=== PATIENT | female | born 1940 | race Caucasian/White ===

== ENCOUNTER 2018-09-15 15:42 | Inpatient (IN) | payer BC ==
[~2018-09-15] VITALS: Ht 152.4 cm; Wt 72.6 kg
[2018-09-15 16:10] VITALS: Ht 152.4 cm; Wt 72.6 kg
[2018-09-15 17:36] LABS: BASOPHIL % 0.5 % (0-2); PLATELET COUNT 322 x10^3mcL (130-400)
[2018-09-15 17:37] LABS: RED CELL DISTRIBUTION WIDTH 16.3 % (11.5-14.5)
[2018-09-15 17:42] LABS: CALCIUM 9.1 mg/dL (8.5-10.1); CARBON DIOXIDE 22.8 mmol/L (21-32); CHLORIDE SERUM 104 mmol/L (98-107); CREATININE SERUM 1.2 mg/dL (0.6-1.0); GLUCOSE SERUM 132 mg/dL (74-106); SODIUM SERUM 142 mmol/L (136-145)
[2018-09-15 17:49] LABS: POTASSIUM SERUM 2.9 mmol/L (3.5-5.1)
[2018-09-15] MEDS ORDERED: DETROL LA2 MG PO (18:22)
[2018-09-15] MEDS ORDERED: PANTOPRAZOLE SO40 M1 PO (18:22)
[2018-09-15] MEDS ORDERED: FERROUS SULFAT325 M2 PO (18:22)
[2018-09-15] MEDS ORDERED: NOR10 PO (18:23)
[2018-09-15] MEDS ORDERED: LOSARTAN POTASS50 M1 PO (18:23)
[2018-09-15] MEDS ORDERED: TRAZODONE50 M1 PO (18:23)
[2018-09-15] MEDS ORDERED: ASPIR 8181 MG PO (18:23)
[2018-09-15] MEDS ORDERED: ATORVASTATIN CA40 M1 PO (18:23)
[2018-09-15] MEDS ORDERED: RANEXA500 M2 PO (18:24)
[2018-09-15] MEDS ORDERED: ELIQUIS5 MG PO (18:24)
[2018-09-15] MEDS ORDERED: BRILINTA60 MG PO (18:25)
[2018-09-15 19:54] LABS: MAGNESIUM 2.1 mg/dL (1.8-2.4); PHOSPHOROUS 3.2 mg/dL (2.5-4.9)
[2018-09-15 19:55] LABS: CHOLESTEROL/HDL RATIO 2.5
[2018-09-15 20:52] VITALS: BP 128/51
[2018-09-16 00:10] LABS: CALCIUM 8.4 mg/dL (8.5-10.1); CARBON DIOXIDE 26.1 mmol/L (21-32); CHLORIDE SERUM 106 mmol/L (98-107); GLUCOSE SERUM 103 mg/dL (74-106); POTASSIUM SERUM 3.4 mmol/L (3.5-5.1); SODIUM SERUM 139 mmol/L (136-145)
[2018-09-16 05:35] VITALS: BP 110/51
[2018-09-16 07:35] LABS: BASOPHIL % 0.6 % (0-2); PLATELET COUNT 301 x10^3mcL (130-400)
[2018-09-16 07:56] LABS: CALCIUM 8.2 mg/dL (8.5-10.1); CARBON DIOXIDE 24.5 mmol/L (21-32); CHLORIDE SERUM 108 mmol/L (98-107); CREATININE SERUM 0.9 mg/dL (0.6-1.0); GLUCOSE SERUM 103 mg/dL (74-106); MAGNESIUM 2.2 mg/dL (1.8-2.4); PHOSPHOROUS 2.2 mg/dL (2.5-4.9); POTASSIUM SERUM 4.2 mmol/L (3.5-5.1); SODIUM SERUM 141 mmol/L (136-145)
[2018-09-16 08:18] LABS: RED CELL DISTRIBUTION WIDTH 16.1 % (11.5-14.5)
[2018-09-16 08:30] VITALS: BP 105/51
[2018-09-16 10:21] VITALS: BP 115/51
[2018-09-16 13:30] VITALS: BP 136/64
[2018-09-16 16:50] LABS: microscopic required? YES; urine erythrocyte NEGATIVE (NEGATIVE)
[2018-09-16 17:30] VITALS: BP 134/64
[2018-09-16 21:04] VITALS: BP 119/48
[2018-09-17 05:32] VITALS: BP 132/60
[2018-09-17 06:45] LABS: BASOPHIL % 0.8 % (0-2); PLATELET COUNT 313 x10^3mcL (130-400)
[2018-09-17 07:22] LABS: RED CELL DISTRIBUTION WIDTH 16.6 % (11.5-14.5)
[2018-09-17 07:23] LABS: CALCIUM 8.7 mg/dL (8.5-10.1); CARBON DIOXIDE 23.5 mmol/L (21-32); CHLORIDE SERUM 107 mmol/L (98-107); CREATININE SERUM 0.8 mg/dL (0.6-1.0); GLUCOSE SERUM 107 mg/dL (74-106); PHOSPHOROUS 3.5 mg/dL (2.5-4.9); POTASSIUM SERUM 3.8 mmol/L (3.5-5.1); SODIUM SERUM 141 mmol/L (136-145)
[2018-09-17 08:00] VITALS: BP 128/60
[2018-09-17 12:15] VITALS: BP 117/64
[2018-09-17 17:00] VITALS: BP 136/61
[2018-09-17 21:04] VITALS: BP 121/51
[2018-09-18 05:39] VITALS: BP 134/74
[2018-09-18 06:58] LABS: CALCIUM 8.4 mg/dL (8.5-10.1); CARBON DIOXIDE 24.1 mmol/L (21-32); CHLORIDE SERUM 112 mmol/L (98-107); CREATININE SERUM 0.8 mg/dL (0.6-1.0); GLUCOSE SERUM 99 mg/dL (74-106); POTASSIUM SERUM 4.4 mmol/L (3.5-5.1); SODIUM SERUM 145 mmol/L (136-145)
[2018-09-18 09:04] VITALS: BP 143/74
[2018-09-18 09:25] LABS: BASOPHIL % 0.8 % (0-2); PLATELET COUNT 326 x10^3mcL (130-400)
[2018-09-18 12:25] VITALS: BP 141/67
[2018-09-18 12:55] VITALS: BP 141/67
[2018-09-18] MEDS ORDERED: LAC PO (13:22)
[2018-09-18] MEDS ORDERED: KEFLEX500 M1 PO (13:22)
== END 2018-09-18 14:30 | DRG 640 ==
LOC: ED 15:42 → DU 18:11
PROVIDERS: Emergency Medicine; Family Medicine
DX: E87.6 Hypokalemia (principal); N17.0 Acute kidney failure with tubular necrosis; N39.0 Urinary tract infection, site not specified; I45.81 Long QT syndrome; S80.11XA Contusion of right lower leg, initial encounter; S80.02XA Contusion of left knee, initial encounter; I10 Essential (primary) hypertension; I25.10 Atherosclerotic heart disease of native coronary artery without angina pectoris; E83.39 Other disorders of phosphorus metabolism; D64.9 Anemia, unspecified; E78.5 Hyperlipidemia, unspecified; F17.210 Nicotine dependence, cigarettes, uncomplicated; Z66 Do not resuscitate; Z86.73 Personal history of transient ischemic attack (TIA), and cerebral infarction without residual deficits; Z79.82 Long term (current) use of aspirin; Z79.01 Long term (current) use of anticoagulants; W22.8XXA Striking against or struck by other objects, initial encounter; Y93.E1 Activity, personal bathing and showering; Y92.002 Bathroom of unspecified non-institutional (private) residence as the place of occurrence of the external cause; Z68.31 Body mass index [BMI] 31.0-31.9, adult
CPT/HCPCS: 97110-GP; J0696; J3475; J3480; J7030; Q0092

== ENCOUNTER 2018-12-07 10:52 | Emergency (ER) | payer BC ==
[~2018-12-07] VITALS: Ht 154.9 cm; Wt 63.5 kg
[~2018-12-07 10:52] MED LIST: ASPIR 8181 MG PO; ATORVASTATIN CA40 M1 PO; BRILINTA60 MG PO; DETROL LA2 MG PO; ELIQUIS5 MG PO; FERROUS SULFAT325 M2 PO; KEFLEX500 M1 PO; LAC PO; LOSARTAN POTASS50 M1 PO; NOR10 PO; PANTOPRAZOLE SO40 M1 PO; RANEXA500 M2 PO; TRAZODONE50 M1 PO
[2018-12-07 11:05] VITALS: Ht 154.9 cm; Wt 63.5 kg
[2018-12-07 11:55] LABS: CALCIUM 9.4 mg/dL (8.5-10.1); CHLORIDE SERUM 101 mmol/L (98-107); CREATININE SERUM 1.2 mg/dL (0.6-1.0); GLUCOSE SERUM 118 mg/dL (74-106); POTASSIUM SERUM 3.9 mmol/L (3.5-5.1); SODIUM SERUM 136 mmol/L (136-145)
[2018-12-07 11:57] LABS: BASOPHIL % 0.6 % (0-2); PLATELET COUNT 273 x10^3mcL (130-400)
[2018-12-07 12:00] LABS: ALKALINE PHOSPHATASE 60 U/L (46-116); ALT/SGPT 24 U/L (14-59); AST/SGOT 40 U/L (15-37); BILIRUBIN TOTAL 1.05 mg/dL (0.20-1.00); TOTAL PROTEIN, SERUM 6.4 g/dL (6.4-8.2)
[2018-12-07 12:13] LABS: RED CELL DISTRIBUTION WIDTH 16.1 % (11.5-14.5)
[2018-12-07 14:33] LABS: UA SPECIFIC GRAVITY >=1.030 (1.005-1.035); microscopic required? YES; urine erythrocyte NEGATIVE (NEGATIVE)
[2018-12-07 14:43] VITALS: BP 126/76
== END 2018-12-07 14:43 | disposition home or self-care (01) ==
LOC: ED 10:52
PROVIDERS: Emergency Medicine
DX: E86.0 Dehydration (principal); K59.00 Constipation, unspecified; N39.0 Urinary tract infection, site not specified; I10 Essential (primary) hypertension; E11.9 Type 2 diabetes mellitus without complications; Z88.5 Allergy status to narcotic agent; Z86.73 Personal history of transient ischemic attack (TIA), and cerebral infarction without residual deficits
CPT/HCPCS: J7030; Q0092

== ENCOUNTER 2019-07-25 12:56 | Inpatient (IN) | payer BC ==
[~2019-07-25] VITALS: Ht 152.4 cm; Wt 63.0 kg
[2019-07-25 12:59] VITALS: Ht 152.4 cm; Wt 63.0 kg
[2019-07-25 14:26] LABS: BASOPHIL % 0.4 % (0-2); PLATELET COUNT 379 x10^3mcL (130-400)
[2019-07-25 14:29] LABS: CALCIUM 8.6 mg/dL (8.5-10.1); CARBON DIOXIDE 24.1 mmol/L (21-32); CHLORIDE SERUM 107 mmol/L (98-107); CREATININE SERUM 1.1 mg/dL (0.6-1.0); GLUCOSE SERUM 108 mg/dL (74-106); SODIUM SERUM 141 mmol/L (136-145)
[2019-07-25 14:33] LABS: ALKALINE PHOSPHATASE 113 U/L (46-116); ALT/SGPT 15 U/L (14-59); AST/SGOT 12 U/L (15-37); BILIRUBIN TOTAL 0.3 mg/dL (0.20-1.00); TOTAL PROTEIN, SERUM 6.2 g/dL (6.4-8.2)
[2019-07-25 14:37] LABS: ALBUMIN 2.9 g/dL (3.4-5.0)
[2019-07-25] MEDS ORDERED: LIPITOR40 MG (15:46)
[2019-07-25] MEDS ORDERED: OXYBUTYNIN CHLOR5 MG (15:46)
[2019-07-25 18:00] LABS: MAGNESIUM 2.1 mg/dL (1.8-2.4); PHOSPHOROUS 4.1 mg/dL (2.5-4.9)
[2019-07-25 18:35] LABS: microscopic required? YES; urine erythrocyte 2+ (NEGATIVE)
[2019-07-25 18:45] LABS: AMPHETAMINE QUAL UR NONE DETECTED (See below)
[2019-07-25 19:37] VITALS: BP 142/70
[2019-07-25 22:34] VITALS: BP 120/53
[2019-07-26 06:29] VITALS: BP 138/64
[2019-07-26 08:17] LABS: CALCIUM 8.6 mg/dL (8.5-10.1); CARBON DIOXIDE 25.5 mmol/L (21-32); CHLORIDE SERUM 108 mmol/L (98-107); CREATININE SERUM 0.8 mg/dL (0.6-1.0); GLUCOSE SERUM 91 mg/dL (74-106); MAGNESIUM 1.8 mg/dL (1.8-2.4); PHOSPHOROUS 3.6 mg/dL (2.5-4.9); POTASSIUM SERUM 4.1 mmol/L (3.5-5.1); SODIUM SERUM 141 mmol/L (136-145)
[2019-07-26 08:41] VITALS: BP 141/63
[2019-07-26 08:53] LABS: BASOPHIL % 0.8 % (0-2); PLATELET COUNT 328 x10^3mcL (130-400)
[2019-07-26 13:05] VITALS: BP 122/66
[2019-07-26 17:55] VITALS: BP 147/52
[2019-07-26 18:03] LABS: BASOPHIL % 0.6 % (0-2); PLATELET COUNT 356 x10^3mcL (130-400); RED CELL DISTRIBUTION WIDTH 13.6 % (11.5-14.5)
[2019-07-26 18:20] LABS: CALCIUM 8.8 mg/dL (8.5-10.1); CARBON DIOXIDE 25.8 mmol/L (21-32); CHLORIDE SERUM 108 mmol/L (98-107); CREATININE SERUM 0.9 mg/dL (0.6-1.0); GLUCOSE SERUM 103 mg/dL (74-106); POTASSIUM SERUM 4.4 mmol/L (3.5-5.1); SODIUM SERUM 141 mmol/L (136-145)
[2019-07-26 22:27] VITALS: BP 102/53
[2019-07-27 06:23] LABS: BASOPHIL % 0.8 % (0-2); PLATELET COUNT 331 x10^3mcL (130-400); RED CELL DISTRIBUTION WIDTH 13.7 % (11.5-14.5)
[2019-07-27 06:36] LABS: CALCIUM 9.3 mg/dL (8.5-10.1); CARBON DIOXIDE 22.7 mmol/L (21-32); CHLORIDE SERUM 107 mmol/L (98-107); CREATININE SERUM 0.8 mg/dL (0.6-1.0); GLUCOSE SERUM 95 mg/dL (74-106); POTASSIUM SERUM 4.2 mmol/L (3.5-5.1); SODIUM SERUM 141 mmol/L (136-145)
[2019-07-27 07:05] VITALS: BP 153/70
[2019-07-27 09:08] VITALS: BP 139/76
[2019-07-27 16:05] VITALS: BP 104/46
[2019-07-27 16:07] VITALS: BP 133/73
[2019-07-27 20:55] VITALS: BP 124/65
[2019-07-28 05:27] VITALS: BP 145/68
[2019-07-28 08:40] VITALS: BP 148/69
[2019-07-28 11:49] VITALS: BP 148/69
== END 2019-07-28 12:12 | disposition home or self-care (01) | DRG 640 ==
LOC: ED 12:56 → DU 17:13 → MU 07-26 14:05
PROVIDERS: Emergency Medicine; ADMIT Internal Medicine
DX: E86.0 Dehydration (principal); N17.0 Acute kidney failure with tubular necrosis; E44.0 Moderate protein-calorie malnutrition; R55 Syncope and collapse; I10 Essential (primary) hypertension; D63.8 Anemia in other chronic diseases classified elsewhere; I25.2 Old myocardial infarction; Z79.01 Long term (current) use of anticoagulants; Z86.73 Personal history of transient ischemic attack (TIA), and cerebral infarction without residual deficits; Z87.891 Personal history of nicotine dependence; Z95.5 Presence of coronary angioplasty implant and graft; Z68.26 Body mass index [BMI] 26.0-26.9, adult
CPT/HCPCS: 83880; 90658; 97116-GP; 97530-GP; G0378; J7030; Q0092